=== PATIENT | female | born 1990 | race Two or more races ===

== ENCOUNTER → 2017-11-07 | Outpatient (CLI) | payer OTHER ==
[~2017-11-07] MED LIST: GADOBUTROL 7.5 MMOL/7.5 ML PFS ONE
== END | disposition home or self-care (01) ==
LOC: RAD 12:17
PROVIDERS: ATTEND Nurse Practitioner Primary Care
DX: I63.8 Other cerebral infarction (principal)
CPT/HCPCS: 70543; 70553; A9585

== ENCOUNTER → 2018-04-02 | Outpatient (CLI) | payer OTHER | END | disposition home or self-care (01) | LOC: CFH 15:00 | PROVIDERS: ATTEND Nurse Practitioner Family | DX: H53.2 Diplopia (principal) | CPT/HCPCS: 70553; A9585 ==